=== PATIENT | male | born 1965 | race Caucasian/White ===

== ENCOUNTER → 2017-11-12 | Outpatient (CLI) | payer BC | END | disposition home or self-care (01) | LOC: KCIC MRI 15:57 | DX: S06.0X9A Concussion with loss of consciousness of unspecified duration, initial encounter (principal); M27.49 Other cysts of jaw; R27.0 Ataxia, unspecified; X58.XXXA Exposure to other specified factors, initial encounter; Y93.89 Activity, other specified; Y92.89 Other specified places as the place of occurrence of the external cause; Y99.8 Other external cause status | CPT/HCPCS: 70551 ==

== ENCOUNTER → 2018-02-12 | Outpatient (CLI) | payer BC ==
--- NOTE | 2018-02-12 09:41 | KCIC ---
MRI Lumbar Spine without contrast History: Low back pain, right radiculopathy, previous back surgery, pain and numbness for one month Technique: Multiplanar, multi sequential noncontrast MR imaging was performed of the lumbar spine. Contrast: None Comparison: February 14, 2010 Findings: Lumbar vertebral body stature is similar overall maintained other than inferior Schmorl's node of T12. There is now negligible posterior subluxation L1 relative to L2, L2 relative to L3, L3 relative to L4. There is multilevel moderate to severe degenerative disc disease L1-L2 through L3-4, relatively progressed at L3-4 in the interval. There is also degenerative disc disease at L5-S1 as seen previously, minimally L4-5. Conus terminates at T12-L1. There is degenerative endplate change greatest at L2-3 and to a lesser degree L3-4 and L1-2. There is posterior annular tear L3-4. There is very mild lumbar dextroscoliosis. L1-L2: There is minimal disc osteophyte complex. Spinal canal and neural foramina are adequate. L2-L3: There is again disc osteophyte complex, superimposed bulge slightly greater. There is mild prominence of posterior epidural fat and facet hypertrophic change. There is somewhat increased mild narrowing of the far lateral recesses greater on the left. There is slightly increased mild narrowing of the inferior left neural foramen, disc osteophyte complex near the undersurface of proximal extraforaminal left L2 nerve root although not displaced. Right neural foramen is adequate. L3-L4: There has been interval posterior central decompression, previously seen extrusion extending above the intervertebral disc space no longer visualized. There is facet hypertrophic change. There is disc osteophyte complex. There is superimposed signal change probably due to component of bulge/protrusion although although no contrast given for this exam to evaluate for underlying enhancing fibrosis. There is new extradural signal abnormality extending below the intervertebral disc space eccentric to the right lateral recess which is more hyperintense than adjacent disc on T2 sequence, measures about 0.9 cm CC by 0.6 cm AP by 1.2 cm transverse. There is resultant severe right lateral recess stenosis below the intervertebral disc space level with contact of the descending right L4 nerve root. At the intervertebral disc space level, there is overall mild left greater than right lateral recess stenosis. Disc osteophyte complex contributes to mild inferior narrowing of the left neural foramen, right neural foramen overall adequate. L4-L5: There is again mild bilateral facet degenerative change and buckling of the ligamentum flavum. There is minimal narrowing of the inferior left neural foramen by disc osteophyte complex, right neural foramen adequate. There is very mild narrowing of the far lateral recesses greater on the left. L5-S1: There is disc osteophyte complex and shallow protrusion as seen previously, near the descending right S1 nerve root without displacement overall unchanged. Spinal canal is adequate. Neural foramina are adequate. There is mild facet hypertrophic change greater on the right. Impression: 1. Compared with the 2010 exam, there has been posterior central decompression at L3-4, previously seen extrusion extending above the intervertebral disc space no longer seen although new extradural signal abnormality in the right lateral recess extending below the L3-4 intervertebral disc space probably related to disc extrusion with right lateral recess stenosis and contact of the descending right L4 nerve root. 2. There is multilevel moderate to severe degenerative disc disease greatest L1-L2 through L3-4 and also at L5-S1, progressed at L3-4 in the interval. 3. There is mild neural foramina compromise such as on the left at L2-3 through L4-5. Electronically signed by: Cecil Whitfield MD (02/12/2018 9:38 AM) [id number]
== END | disposition home or self-care (01) ==
LOC: KCIC MRI 08:31
PROVIDERS: ATTEND Family Medicine
DX: M51.36 Other intervertebral disc degeneration, lumbar region (principal); M51.37 Other intervertebral disc degeneration, lumbosacral region; M25.78 Osteophyte, vertebrae; M48.061 Spinal stenosis, lumbar region without neurogenic claudication; M51.44 Schmorl's nodes, thoracic region
CPT/HCPCS: 72148